=== PATIENT | male | born 1965 | race Caucasian/White ===

== ENCOUNTER 2016-08-25 10:01 | Emergency (ER) | payer SELFPAY ==
[~2016-08-25] VITALS: Ht 188 cm; Wt 113.0 kg
[~2016-08-25 10:01] MED LIST: CARV6.25 PO; CIPR-9 PO; CORT1SOL RIGHT EAR; LISI10TA3 PO; PRAV40TA2 PO
[2016-08-25 10:05] VITALS: BP 143/106; PULSE 72; RESP 16; TEMP 99.2; O2SAT 97
--- NOTE | 2016-08-25 10:41 | PD ---
HPI Chief Complaint: ENT Complaint Time Seen by Provider: 10:17 Travel History International Travel<30 days: No Contact w/Intl Traveler<30days: No Traveled to known affect area: No History of Present Illness HPI Patient is a 50-year-old male who returns to emergency room with complaints of "I can't hear from his right ear." Patient reports that he was recently seen emergency room, reports that he had his right ear disimpacted with cerumen and reports that he completed his full course of antibiotics as well as eardrops. Reports that his symptoms of right ear pain has since resolved, reports at this time "I can't hear from a right ear." Patient with no fevers or chills. Patient with no other complaints. PFSH Past Medical History Cardiovascular Problems: Yes (STENT/HTN) High Cholesterol: Yes Coronary Artery Disease: Yes Diminished Hearing: No Hypertension: Yes Tetanus Vaccination: Unknown Influenza Vaccination: No Past Surgical History Coronary Stent: Yes Family History Family History: Negative Social History Alcohol Use: Yes (2 BEERS A DAY) Tobacco Use: Yes (08/26 PPD) Substance Use: No Allergies-Medications (Allergen,Severity, Reaction): Coded Allergies: No Known Allergies (Verified , 08/25/16) Reported Meds & Prescriptions Reported Meds & Active Scripts Active Reported Pravastatin 40 Mg Tab 40 Mg PO HS Coreg (Carvedilol) 6.25 Mg Tab 6.25 Mg PO BID Lisinopril 10 Mg Tab 10 Mg PO DAILY Review of Systems HENT: Positive: Other ("I can't hear from my right ear") Physical Exam Narrative GENERAL: No acute distress, nontoxic SKIN: Warm and dry. HEAD: Atraumatic. Normocephalic. EYES: Pupils equal and round. No scleral icterus. No injection or drainage. ENT: No nasal bleeding or discharge. Mucous membranes pink and moist. right ear: pt with impacted soft white cerum, using currette, pts cerum was disimpacted successfully, no otitis media, irritated ear canal after cerum disimpaction, no signs of infection left ear: normal exam CARDIOVASCULAR: Regular rate and rhythm. No murmur appreciated. RESPIRATORY: No accessory muscle use. Clear to auscultation. Breath sounds equal bilaterally. GASTROINTESTINAL: Abdomen soft, non-tender, nondistended. Hepatic and splenic margins not palpable. NEUROLOGICAL: Awake and alert. No obvious cranial nerve deficits. Motor grossly within normal limits. Normal speech. Data Data Last Documented VS Vital Signs Date Time Temp Pulse Resp B/P Pulse Ox O2 Delivery O2 Flow Rate FiO2 08/25/16 10:05 99.2 72 16 143/106 97 [facility] Medical Decision Making Medical Screen Exam Complete: Yes Emergency Medical Condition: Yes Interpretation(s) Vital Signs Date Time Temp Pulse Resp B/P Pulse Ox O2 Delivery O2 Flow Rate FiO2 08/25/16 10:05 99.2 72 16 143/106 97 Differential Diagnosis Otitis media, impacted cerum to right ear, otitis externa Narrative Course 50-year-old male with complaints of "I can't hear from his right ear." Patient was recently treated for otitis media and otitis externa, patient has completed a full course of antibiotics and reports that the pain to his ear has improved. Patient reports decreased hearing from his right ear. On physical exam, patient has impacted right ear with cerumen Curette was used and a significant amount of cerumen was removed from his right ear canal. After procedure, patient able to hear from his right ear and reports complete resolution of symptoms. Discussed with patient need to follow-up with his primary care doctor as well as ENT as outpatient and return to ER as needed. Procedures Procedure Narrative Cerumen disimpaction: right ear was impacted with soft white cerum, cerum disimpacted using currette to right ear, disimpaction was successful pt reports "i can hear now from my right ear" Diagnosis Primary Impression: Impacted cerumen, right ear Additional Impression: cerumen removal Referrals: Jose Elias Alberts MD Patient Instructions: General Instructions Departure Forms: Tests/Procedures Additional Instructions: Please follow-up with ear nose and throat doctors as outpatient Please continue your antibiotic eardrops to the right ear for one week Return to ER as needed Disposition: 01 DISCHARGE HOME Condition: Stable NoamMar Leobardo DO Aug 25, 2016 10:41
== END 2016-08-25 11:19 | disposition home or self-care (01) ==
LOC: PHED 10:01
DX: H61.21 Impacted cerumen, right ear (principal); E78.00 Pure hypercholesterolemia, unspecified; I10 Essential (primary) hypertension; F17.200 Nicotine dependence, unspecified, uncomplicated; Z86.79 Personal history of other diseases of the circulatory system
CPT/HCPCS: 69210